=== PATIENT | male | born 1945 | race Caucasian/White ===

== ENCOUNTER 2018-12-25 17:12 | Emergency (ER) | payer MEDICARE, OTHER ==
--- NOTE | 2018-12-25 17:21 | ED Physician Documentation ---
Chest Pain - HISTORIAN Historian: patient - HPI Stated Complaint: chest pain Chief Complaint: Chest Pain Onset: days ago (2) Timing: gradual onset Duration: waxing, waning Last known Well Date: 12/22/18 Last Known Well Time: 08:00 Context: activity Severity: moderate Quality: pressure, tightness, indigestion, burning, dull Chest Pain Radiation: jaw (/neck not up into jaw and he has chronic neck pain ) Chest Pain Signs/Symptoms: denies: nausea, vomiting, diaphoresis, cool extremities, dizziness, dyspnea, tachypnea Worsened By: exertion Relieved By: nothing Further Comments: yes (He states a few days ago he had similar chest pain and it resolved on its own. Today after having pizza for lunch he was working on and riding a tractor when he had chest pain that went up into his neck (not jaw) and the pain was mid chest and he has chronic neck pain so he was not sure if the pain was indegestion from pizza or pain from his chronic pain issues. HE did try TUMS with no relief. He states he has no shortness of air. He has more mild pain now about 6/10 . Mid chest) - ROS CONST: none - PAST HX HI risk factors: hypertension, diabetes Type 2 Neuro deficit: none GI disease: GERD Lung disease: none Immunizations: UTD Allergies/Adverse Reactions: Allergies Allergy/AdvReac Type Severity Reaction Status Date / Time Penicillins Allergy Verified 12/25/18 17:38 Home Medications: Ambulatory Orders Medication Instructions Recorded Atorvastatin Calcium 40 mg PO HS 12/25/18 metFORMIN HCl [Glucophage] 500 mg PO DAILY 12/25/18 - SOCIAL HX Smoking History: cigarettes Alcohol Use: none Drug Use: none - FAMILY HX Family HX: none - REVIEWED ASSESSMENTS Nursing Assessment Reviewed: Yes Vitals Reviewed: Yes Progress - Progress Progress: 1800: Pain is reduced to 4/10 and he states he is feeling better DG 1805: call in to [facility] 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 with call back number given for transfer DG 1825: minimal pain at this time per his report - awaiting return call from [facility] DG 1845: Dr Allen is possible accepting Minister[facility] from [facility] will return call DG 1920: Dr Trujillo returned call for report and states [facility] will call with confirm on admit DG 2008: Returned call to [facility] who will have to contact to see who is assuming admission - pt is doing well and is aware of status denies any current pain DG ED Results Lab/Radiology - Radiology Radiology Impressions: HISTORY: 73-year-old male with shortness of breath, chest pain. COMPARISON: None available. TECHNIQUE: Single portable AP view of the chest was performed. FINDINGS: No pneumothorax, consolidative infiltrates, or pulmonary edema. The heart is not enlarged. The aortic arch is calcific. There are multiple old left rib fractures. The right humeral head is high-riding. There is bilateral acromioclavicular hypertrophy. IMPRESSION: No acute intrathoracic process identified. Electronically signed on Dec 25, 2018 6:06:49 PM CDT by: Pasquale Ospina Chest Pain Physical Exam - EXAM General Appearance: no acute distress, alert EENT: eye inspection normal, no signs of dehydration Neck: nml inspection, other (pain to touch bilateral sides ) Respiratory: no resp. distress, chest non-tender, nml breath sounds CVS: reg. rate & rhythm, no murmur Abdomen: soft, non-tender Skin: warm/dry, normal color Extremities: non-tender, normal range of motion, no evidence of injury, no edema Neuro: oriented X3 Discharge Clincal Impression: Non-STEMI (non-ST elevated myocardial infarction) Referrals: Russell Joe MD [Primary Care Provider] - 2 Days Comments: Dr Trujillo is accepting per 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 DG Condition: Fair Disposition: 02 XFER [facility] Decision to Admit: NO Date of Decison to Admit: 12/25/18 Decision Time: 20:14
[2018-12-25] MEDS ORDERED: ASPIRIN 81 MG CHEW TAB PO ONE (17:23)
[2018-12-25 17:26] LABS: BASOPHILS % 0.6 % (0.0-1.5); NEUTROPHILS # 3.7 # k/uL (1.4-7.7)
[2018-12-25] MEDS ORDERED: KETOROLAC TROMETHAMINE 30 MG/1ML VIAL IV ONE (17:29)
[2018-12-25 17:38] LABS: eGFR (Non-African) 50
[2018-12-25] MEDS ORDERED: 0.9 % SODIUM CHLORIDE 1,000 ML IV ONE ×2 (17:40→17:41)
[2018-12-25 20:35] VITALS: BP 169/83
[2018-12-26 06:56] LABS: APPEARANCE,URINE CLEAR (CLEAR); COLOR,URINE YELLOW (YELLOW); OCCULT BLOOD,URINE NEGATIVE (NEGATIVE); PH URINE 5.5 (5.0 - 8.0); UROBILINOGEN URINE 0.2 Eu (0.2-1.0)
--- NOTE | 2018-12-27 14:47 | Diagnostic Imaging Report ---
JENNIFER BRAXTON [facility] [address] [facility] [address] [place], [place]. [address] Report Submission Date: Dec 25, 2018 6:06:49 PM CDT Patient Study Name: KELSEY WALSH Date: Dec 25, 2018 5:13:02 PM CDT Modality Type: DX Gender: M Description: CHEST 1VIEW : 47 Institution: [facility] Physician: JENNIFER BRAXTON HISTORY: 73-year-old male with shortness of breath, chest pain. COMPARISON: None available. TECHNIQUE: Single portable AP view of the chest was performed. FINDINGS: No pneumothorax, consolidative infiltrates, or pulmonary edema. The heart is not enlarged. The aortic arch is calcific. There are multiple old left rib fractures. The right humeral head is high-riding. There is bilateral acromioclavicular hypertrophy. IMPRESSION: No acute intrathoracic process identified. Electronically signed on Dec 25, 2018 6:06:49 PM CDT by: Pasquale CAMILO
== END 2018-12-25 20:30 | disposition short-term general hospital (02) ==
LOC: ED 17:12
DX: I21.4 Non-ST elevation (NSTEMI) myocardial infarction (principal)
CPT/HCPCS: 71045; 80053; 81002; 83880; 84484; 85025; 85379; 93005; 96361; 96374; 99281; 99284; J1885; J7030; S1016